=== PATIENT | female | born 1990 | race Caucasian/White ===

== ENCOUNTER 2017-08-24 21:17 | Emergency (ER) | payer MEDICAID, OTHER ==
[~2017-08-24] VITALS: Ht 175.3 cm; Wt 74.6 kg
[~2017-08-24 21:17] MED LIST: IBUP-1222 PO; IBUP200T49 PO
[2017-08-24 21:18] VITALS: BP 127/77
[2017-08-24] MEDS ORDERED: LIDOCAINE-MPF 1%, 5ML INFIL ONE (22:00)
[2017-08-24] MEDS ORDERED: LIDOCAINE-MPF 1%, 5ML ONE (22:00)
== END 2017-08-24 23:00 | disposition home or self-care (01) ==
LOC: ED 22:50
DX: L02.31 Cutaneous abscess of buttock (principal)
CPT/HCPCS: 10060; 99283

== ENCOUNTER 2017-08-26 13:19 | Emergency (ER) | payer MEDICAID ==
[~2017-08-26] VITALS: Ht 175.3 cm; Wt 75.3 kg
[2017-08-26 13:42] VITALS: BP 124/78
== END 2017-08-26 15:23 | disposition home or self-care (01) ==
LOC: ED 14:00
DX: L02.415 Cutaneous abscess of right lower limb (principal); F17.200 Nicotine dependence, unspecified, uncomplicated
CPT/HCPCS: 99281

== ENCOUNTER 2021-01-31 16:56 | Emergency (ER) | payer MEDICAID ==
[~2021-01-31] VITALS: Ht 175.3 cm; Wt 74.3 kg
[2021-01-31] MEDS ORDERED: SODIUM CHLORIDE FLUSH 10ML SYR IVF ONE (17:30)
[2021-01-31] MEDS ORDERED: SODIUM CHLORIDE 0.9% 1,000ML IVBOLUS ONE (17:30)
[2021-01-31] MEDS ORDERED: ACETAMINOPHEN 500 MG TABLET PO ONE (17:30)
[2021-01-31 18:27] LABS: BASOPHILS % (AUTO) 0 % (0-1); EOSINOPHILS % (AUTO) 0 % (1-7); LYMPHOCYTES % (AUTO) 8 % (22-44); MEAN CORPUSCULAR HEMOGLOBIN 29.4 pg (27.0-34.8); MEAN CORPUSCULAR HGB CONC 32.8 g/dL (32.4-35.8); MEAN PLATELET VOLUME 8.6 fL (7.4-10.4); MONOCYTES % (AUTO) 4 % (2-9); NEUTROPHILS % (AUTO) 87 % (42-75); PLATELET COUNT 248 x10^3/uL (130-400); RED BLOOD COUNT 4.22 x10^6/uL (3.82-5.3); RED CELL DISTRIBUTION WIDTH 15.2 % (9.6-15.2)
[2021-01-31 18:39] LABS: ALANINE AMINOTRANSFERASE 31 U/L (12-78); ALBUMIN 3.6 g/dL (3.4-5.0); ANION GAP 4 mmol/L (5-15); CALCIUM 8.6 mg/dL (8.5-10.1); CHLORIDE 107 mmol/L (98-107); CREATININE 0.72 mg/dL (0.55-1.02)
[2021-01-31 18:42] LABS: ALKALINE PHOSPHATASE 114 U/L (45-117); BILIRUBIN,TOTAL 0.4 mg/dL (0.2-1.0); TOTAL PROTEIN 7.8 g/dL (6.4-8.2)
--- NOTE | 2021-01-31 20:06 | NUR ---
CHASER HELPER: PT TO ROOM
[2021-01-31] MEDS ORDERED: ACETAMINOPHEN 500 MG TABLET ONE (20:09)
--- NOTE | 2021-01-31 20:43 | NUR ---
IV started with aseptic technique x2 attemtps. IV bolus running slowly due to size of cath needed to get IV started. Pt VS reassessed and found to be WNL. Lab results reviewed and awaiting MD recheck with plan of care decision.
[2021-01-31 22:03] VITALS: BP 117/59
== END 2021-01-31 22:05 | disposition home or self-care (01) ==
LOC: ED 21:00
DX: L03.116 Cellulitis of left lower limb (principal); F17.210 Nicotine dependence, cigarettes, uncomplicated
CPT/HCPCS: 36415; 80053; 83605; 85025; 87040; 93005; 96360; 96361; 99284; 99406; J7030